=== PATIENT | female | born 1965 | race Asian ===

== ENCOUNTER → 2017-07-24 | Outpatient (CLI) | payer BC | LOC: MC.RAD 07:40 | DX: Z12.31 Encounter for screening mammogram for malignant neoplasm of breast (principal) ==

== ENCOUNTER 2018-05-07 07:09 | Day surgery (SDC) | payer BC ==
[~2018-05-07] VITALS: Ht 162.6 cm; Wt 60.9 kg
[2018-05-07 07:29] VITALS: BP 112/68; PULSE 82; TEMP 97.9
[2018-05-07] MEDS ORDERED: NASACORT OTC NS (07:34)
[2018-05-07] MEDS ORDERED: TOPROL XL 25MG25 MG PO (07:35)
[2018-05-07] MEDS ORDERED: PRILOSEC 20MG20 MG PO (07:36)
[2018-05-07] MEDS ORDERED: NEXIUM 20MG20 MG PO (07:36)
[2018-05-07] MEDS ORDERED: GLUCOSAMIN 500 PO (07:36)
[2018-05-07] MEDS ORDERED: SALINE 45 ML45 ML NS (07:37)
[2018-05-07] MEDS ORDERED: TRIAMCINOLONE A15 G3 TP (07:38)
[2018-05-07 08:53] VITALS: BP 111/80; PULSE 87; TEMP 98
[2018-05-07 09:00] VITALS: BP 113/78; PULSE 88
[2018-05-07 09:15] VITALS: BP 109/85; PULSE 69
== END 2018-05-07 09:23 | disposition home or self-care (01) ==
LOC: SDCO 07:09
DX: Z12.11 Encounter for screening for malignant neoplasm of colon (principal); K64.0 First degree hemorrhoids; K21.9 Gastro-esophageal reflux disease without esophagitis; I10 Essential (primary) hypertension; M19.90 Unspecified osteoarthritis, unspecified site
CPT/HCPCS: J2250; J3010; J7030

== ENCOUNTER → 2019-07-22 | Outpatient (CLI) | payer BC ==
[~2019-07-22] MED LIST: GLUCOSAMIN 500 PO; NASACORT OTC NS; NEXIUM 20MG20 MG PO; PRILOSEC 20MG20 MG PO; SALINE 45 ML45 ML NS; TOPROL XL 25MG25 MG PO; TRIAMCINOLONE A15 G3 TP
== END ==
LOC: MC.RAD 10:45
DX: Z12.31 Encounter for screening mammogram for malignant neoplasm of breast (principal); N64.89 Other specified disorders of breast

== ENCOUNTER → 2019-07-29 | Outpatient (CLI) | payer BC | LOC: MC.RAD 13:00 | DX: N64.89 Other specified disorders of breast (principal); R59.0 Localized enlarged lymph nodes | CPT/HCPCS: G0279 ==

== ENCOUNTER → 2020-07-23 | Outpatient (CLI) | payer BC | LOC: MC.RAD 07:45 | DX: Z12.31 Encounter for screening mammogram for malignant neoplasm of breast (principal) ==

== ENCOUNTER → 2021-08-26 | Outpatient (CLI) | payer OTHER | LOC: MC.RAD 07:45 | DX: Z12.31 Encounter for screening mammogram for malignant neoplasm of breast (principal) ==

== ENCOUNTER → 2023-10-31 | Outpatient (CLI) | payer OTHER | LOC: MC.RAD 14:26 | DX: Z12.31 Encounter for screening mammogram for malignant neoplasm of breast (principal) ==